=== PATIENT | female | born 1960 | race Caucasian/White ===

== ENCOUNTER 2016-12-08 21:08 | Observation (INO) | payer BC ==
[~2016-12-08] VITALS: Ht 165.1 cm; Wt 71.9 kg
[2016-12-08 21:36] LABS: MCH 30.8 PG (29.0-34.0); MCHC 33.8 G/DL (30.0-36.0); MCV 91.1 FL (83-99); MEAN PLAT.VOLUME 9.2 uM^3 (9.5-12.4); PLATELET COUNT 255 K/uL (156-360); RBC DIS.WIDTH-CV 12.9 % (11.8-14.6); RBC DIS.WIDTH-SD 42.6 % (39-53); RED BLOOD COUNT 4.61 M/uL (3.80-5.20)
[2016-12-08 21:48] LABS: CHLORIDE 102 mEq/L (99-109); POTASSIUM 3.9 mEq/L (3.7-5.4); SODIUM 141 mEq/L (136-147)
[2016-12-08 21:49] LABS: GLUCOSE 94 mg/dL (70-99)
[2016-12-08 21:51] LABS: ANION GAP 15 MEQ/L (2-14)
[2016-12-08 21:53] LABS: GFR ESTIMATE (CALCULATED) > 59 mL/min/
[2016-12-08 21:54] LABS: UREA NITROGEN (BUN) 16 mg/dL (9-23)
[2016-12-08 21:58] LABS: TROP-I INTERPRETATION NEGATIVE; TROPONIN-I < 0.01 ng/mL (0.0-0.30)
[2016-12-08 22:05] LABS: D-DIMER ELISA < 150.00 ng/mLDDU (<230)
[2016-12-08] MEDS ORDERED: ASPIR 8181 M1 PO (23:11)
[2016-12-08] MEDS ORDERED: WELLBUTRIN XL300 MG PO (23:12)
[2016-12-08] MEDS ORDERED: XANAX0.25 MG PO (23:12)
[2016-12-08] MEDS ORDERED: ERGOCALCIF50000 UNIT PO (23:12)
[2016-12-08] MEDS ORDERED: METFORMIN HCL500 M1 PO (23:12)
[2016-12-08] MEDS ORDERED: GLIPIZIDE XL10 MG PO (23:13)
[2016-12-08] MEDS ORDERED: TRICOR145 MG PO (23:13)
[2016-12-08] MEDS ORDERED: INVOKANA300 MG PO (23:15)
[2016-12-08] MEDS ORDERED: FLUOXETINE HCL10 MG PO (23:15)
[2016-12-08] MEDS ORDERED: [UNRECOGNIZED DRUG - OTHER] PO (23:16)
[2016-12-08] MEDS ORDERED: TRESIBA FL100 UNIT/1 SC (23:55)
[2016-12-09 03:00] VITALS: BP 113/67
[2016-12-09 03:36] LABS: HDL CHOLESTEROL 61 MG/DL (Desirable>=50); LDL CHOLESTEROL 153 mg/dL (Desirable<100); NON-HDL CHOLESTEROL 207 mg/dL (Desirable<160); SAMPLE HEMOLYSIS CHECK 0; SAMPLE ICTERIC CHECK 0; SAMPLE LIPEMIA CHECK 0; TOTAL CHOLESTEROL 268 mg/dL (Desirable<200); TRIGLYCERIDES 270 MG/DL (Normal: <150)
[2016-12-09 05:41] LABS: CHLORIDE 106 mEq/L (99-109); POTASSIUM 3.9 mEq/L (3.7-5.4); SODIUM 141 mEq/L (136-147)
[2016-12-09 05:42] LABS: TROP-I INTERPRETATION NEGATIVE; TROPONIN-I < 0.01 ng/mL (0.0-0.30)
[2016-12-09 05:45] LABS: ANION GAP 11 MEQ/L (2-14)
[2016-12-09 05:46] LABS: TOTAL BILIRUBIN 0.5 mg/dL (0.0-1.0)
[2016-12-09 05:47] LABS: ALKALINE PHOSPHATASE 82 IU/L (3-129); GFR ESTIMATE (CALCULATED) > 59 mL/min/
[2016-12-09 05:48] LABS: UREA NITROGEN (BUN) 15 mg/dL (9-23)
[2016-12-09 05:51] LABS: HEMATOCRIT 38.4 % (36.0-46.0); MCH 30.7 PG (29.0-34.0); MCHC 33.9 G/DL (30.0-36.0); MCV 90.8 FL (83-99); MEAN PLAT.VOLUME 9.6 uM^3 (9.5-12.4); PLATELET COUNT 220 K/uL (156-360); RBC DIS.WIDTH-SD 42.5 % (39-53); RED BLOOD COUNT 4.23 M/uL (3.80-5.20); WHITE BLOOD COUNT 8.7 K/uL (4.1-10.2)
[2016-12-09 06:03] LABS: GLUCOSE 166 mg/dL (70-99)
[2016-12-09 08:18] VITALS: BP 132/69
[2016-12-09 11:49] LABS: TROP-I INTERPRETATION NEGATIVE; TROPONIN-I < 0.01 ng/mL (0.0-0.30)
[2016-12-09 12:48] VITALS: BP 141/78
[2016-12-09 13:26] LABS: POINT-OF-CARE METER ID UU13113831
== END 2016-12-09 15:50 | disposition home or self-care (01) ==
LOC: EME 21:08 → EDOF 12-09 00:28 → ENRESERV 12-09 00:31 → 5WEST 12-09 02:58
PROVIDERS: Emergency Medicine; Internal Medicine
DX: R07.9 Chest pain, unspecified (principal); E11.9 Type 2 diabetes mellitus without complications; Z79.4 Long term (current) use of insulin; E78.5 Hyperlipidemia, unspecified; F41.9 Anxiety disorder, unspecified; E78.00 Pure hypercholesterolemia, unspecified; F32.9 Major depressive disorder, single episode, unspecified; I10 Essential (primary) hypertension; Z79.82 Long term (current) use of aspirin
CPT/HCPCS: 71020; 80048; 80053; 80061; 82948; 84484; 85027; 85379; 93005; 99281; 99284; G0378; J1644